=== PATIENT | male | born 1980 | race Caucasian/White ===

== ENCOUNTER 2017-04-03 08:53 | Emergency (ER) | payer OTHER ==
[~2017-04-03] VITALS: Ht 182.9 cm; Wt 124.7 kg
--- NOTE | 2017-04-03 10:38 | REP ---
Left knee series: Five views. History: Twisting injury. Pain. Findings: Five views of the left knee demonstrate smooth bony hypertrophy of the inferior pole the patella suggesting remote prior chronic traction injury, Sinding-Lennon disease. This is not an acute abnormality. Lateral view shows thickening in the suprapatellar bursa region suggesting a joint effusion. No bony erosive changes seen. No fracture is noted. 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 Probable joint effusion. No acute bony abnormality. Signed by Neno Penaloza MD 04/03/2017 12:58 P
[2017-04-03] MEDS ORDERED: NAPR500T PO (11:07)
[2017-04-03 11:13] VITALS: BP 140/87
== END 2017-04-03 11:24 | disposition home or self-care (01) ==
LOC: M ED 09:02
DX: M23.92 Unspecified internal derangement of left knee (principal); W18.40XA Slipping, tripping and stumbling without falling, unspecified, initial encounter; Y92.096 Garden or yard of other non-institutional residence as the place of occurrence of the external cause; Y93.9 Activity, unspecified; Y99.9 Unspecified external cause status; J45.909 Unspecified asthma, uncomplicated